=== PATIENT | male | born 1995 ===

== ENCOUNTER → 2024-04-20 | Outpatient (REF) | payer OTHER ==
[2024-04-20 09:50] LABS: SEMEN APPEARANCE OPAQUE (OPAQUE); SEMEN VOLUME 5.5 ml (2.0-5.0)
[2024-04-20 09:51] LABS: SEMEN VISCOSITY LIQUID (LIQUID); SPERM CONCENTRATION 54.3 M/ml (>=15.0); WBC CONCENTRATION <=1 M/ml (<=1 M/ml)
== END ==
LOC: M LAB REF 09:32
PROVIDERS: ATTEND Advanced Practice Midwife
DX: N46.9 Male infertility, unspecified (principal)